=== PATIENT | female | born 1945 | race Caucasian/White ===

== ENCOUNTER 2016-09-24 19:22 | Observation (INO) ==
[2016-09-24 20:04] LABS: Basophils # 0.2 K/mcL (0.0-0.2); Basophils % 1.3 %; Eosinophils # 0.4 K/mcL (0.0-0.6); Eosinophils % 3.1 %; Hematocrit 42.6 % (35.3-44.9); Immature Granulocytes % 0.4 % (0-4); Lymphocytes # 5.6 K/mcL (0.6-4.6); Lymphocytes % 49.6 %; Mean Corpuscular HGB Conc 32.9 g/dL (31.6-35.5); Mean Corpuscular Volume 91.2 fL (83.0-100.0); Mean Platelet Volume 9.2 fL (9.4-12.4); Monocytes # 0.9 K/mcL (0.0-1.3); Monocytes % 8.2 %; Neutrophils # 4.2 K/mcL (1.6-8.9); Platelet Count 444 K/mcL (140-400); Red Blood Count 4.67 M/mcL (3.82-4.97); Red Cell Distribution Width 13.6 % (11.5-14.5); Segmented Neutrophils % 37.4 %
[2016-09-24 20:09] LABS: Prothrombin Time 10.4 Seconds (9.4-12.1)
[2016-09-24 20:11] LABS: Activated Partial Thrombo Time 29.9 Seconds (26.0-36.0)
[2016-09-24 20:16] LABS: BUN/Creatinine Ratio 13 (6-26); Blood Urea Nitrogen 12 mg/dL (7-20); Calcium 10.9 mg/dL (8.6-10.8); Carbon Dioxide 29 mEq/L (19-29); Chloride 101 mEq/L (98-109); Glucose 138 mg/dL (70-99); Osmolality,Calculated 296 (280-300); Potassium 3.6 mEq/L (3.5-4.5); Sodium 142 mEq/L (136-145); eGFR For African Americans > 60 (> 60); eGFR For Non-African Americans 57 (> 60)
[2016-09-24] MEDS ORDERED: *HR* Adenosine 6 MG/2 ML VIAL IVP ONE (20:32)
[2016-09-24] MEDS ORDERED: 0.9 % Sodium Chloride 500 ML ONE ×2 (20:36)
[2016-09-24 20:48] LABS: Thyroid Stimulating Hormone 1.648 mcIU/mL (0.350-4.840)
--- NOTE | 2016-09-24 20:51 | Emergency Department Note ---
Disposition Clinical Impression: Atrial fibrillation with rapid ventricular response Atrial fibrillation Qualifiers: Atrial fibrillation type: persistent Qualified Code(s): I48.1 - Persistent atrial fibrillation Disposition: Admitted As Inpatient Condition: Fair Referrals: NO,PCP [Non-Partnered Physician] - Forms: ED Satisfaction Letter Time of Disposition: 22:18 Arrhythmia/Palpitations HPI - General Chief Complaint: ED Arrhythmia/Palpitations Stated Complaint: "tachy and irregular heart beat" THORPE Time Seen by Provider: 09/24/16 20:20 Source: patient Mode of arrival: private vehicle Limitations: no limitations Nursing Notes Reviewed: Yes Vital Signs Reviewed: Yes - History of Present Illness Pt Subjective Complaint: rapid heart beat Onset (ago): Just BURN OUT TENDER LACE Duration: constant Severity: severe Context: occurred during rest Associated symptoms: Reports: denies other symptoms. Denies: chest pain, shortness of breath, near-syncope - Related Data Home Medications Medication Instructions Recorded Confirmed Alendronate Sodium [Fosamax] 70 mg PO QWEEK 09/24/16 09/24/16 Ca/D3/Mag#11/Zinc/Event Mgr/Tre/Bor 1 each PO DAILY 09/24/16 09/24/16 [Caltrate 600+D Plus Tablet] Cholecalciferol (Vitamin D3) 5,000 unit PO DAILY 09/24/16 09/24/16 [Vitamin D3] Cyanocobalamin (Vitamin B-12) 1,000 mcg PO DAILY 09/24/16 09/24/16 [Vitamin B12] Magnesium Oxide [Magnesium] 400 mg PO DAILY 09/24/16 09/24/16 Multivit-Min/Iron/Folic/Lutein 1 each PO DAILY 09/24/16 09/24/16 [Centrum Silver Women Tablet] Naproxen Sodium [Aleve] 220 mg PO Q12H PRN 09/24/16 09/24/16 Omeprazole [PriLOSEC] 20 mg PO DAILY 09/24/16 09/24/16 Phytonadione [Vitamin K] 100 mcg PO DAILY 09/24/16 09/24/16 Turmeric Root Extract [Turmeric] 500 mg PO DAILY 09/24/16 09/24/16 Ubidecarenone [Co Q-10] 200 mg PO DAILY 09/24/16 09/24/16 Vitamin A 100 mg PO DAILY 09/24/16 09/24/16 Allergies Allergy/AdvReac Type Severity Reaction Status Date / Time cefdinir Allergy "shaking Verified 09/24/16 19:45 all over" sulfamethoxazole Allergy "shaking Verified 09/24/16 19:45 [From Bactrim] all over" trimethoprim [From Bactrim] Allergy "shaking Verified 09/24/16 19:45 all over" All systems ED: reviewed and negative except as stated. Constitutional: Denies: fever, chills ENT ED: Denies: ear pain, throat pain, congestion Cardiovascular: Reports: palpitations. Denies: chest pain Respiratory: Denies: cough, dyspnea Gastrointestinal: Denies: abdominal pain, nausea, vomiting Musculoskeletal: Denies: back pain Integumentary: Denies: rash Neurological: Denies: headache Psychiatric: Denies: anxiety Past Medical History - Past Medical History Attestation: Yes The following information was validated with the patient. Source: patient, obtained from family, nursing notes reviewed Medical history: Reports: no medical history Surgical history: Reports: non-contributory Psychiatric history: Reports: no psych history - Social History Smoking Status: Never smoker Alcohol use: Reports: none Drug use: Reports: none Physical Exam - General Limitations: no limitations General appearance: alert, in no apparent distress - Head Head exam: atraumatic, normocephalic - Eye Eye exam: Present: normal appearance, PERRL, EOMI - ENT ENT exam: normal exam, normal oropharynx, mucous membranes moist, normal external ear exam - Neck Neck exam: Present: normal inspection, full ROM, trachea midline. Absent: meningismus, thyromegaly - Chest Chest inspection: Present: normal inspection, symmetric chest wall rise. Absent : tenderness - Respiratory Respiratory exam: Present: normal lung sounds bilaterally. Absent: respiratory distress, wheezes - Cardiovascular Cardiovascular exam: Present: tachycardia, irregular rhythm - Abdominal Exam Abdominal exam: Present: soft, Non-Tender, normal bowel sounds - Extremities Exam Extremities exam: Present: normal inspection, full ROM. Absent: pedal edema, calf tenderness - Neurological Exam Neurological exam: Present: alert, oriented X3 - Psychiatric Psychiatric exam: Present: normal affect, normal mood - Skin Skin exam: Present: warm, dry. Absent: rash Course Course Narrative: Patient presents with abrupt onset of rapid heartbeat. Initially her heart rate was 160 I could not tell if it was atrial fibrillation or SVT. We gave her 12 of Adenocard and her heart rate slowed down enough to indicate that it was atrial fibrillation. She is asymptomatic. I will start her on Cardizem. We will heparinize her. She will need to be admitted to the hospital. Labs are pending. - Reevaluation(s) Reevaluation #1: Heart raise on the 70-80 range. Still in atrial fibrillation. Artisan drip running at 5 mg an hour. Patient feels better. We will arrange to admit the patient. Lab workup looks good. Time: 22:17 - Consultations Consultation #1: Tian hospitalist - I discussed the case with the hospitalist. He is accepted the patient for admission. Time: 22:18 Vital Signs Temperature 97.9 F 09/24/16 19:38 Pulse Rate 157 09/24/16 19:38 Respiratory Rate 16 09/24/16 19:38 Blood Pressure 148/81 09/24/16 19:38 O2 Sat by Pulse Oximetry 97 09/24/16 19:38 Temperature 97.9 F 09/24/16 19:38 Pulse Rate 81 09/24/16 20:53 Respiratory Rate 16 09/24/16 20:53 Blood Pressure 115/59 09/24/16 20:53 O2 Sat by Pulse Oximetry 92 09/24/16 20:53 Oxygen Delivery Oxygen Delivery Nasal Cannula Arrhythmia/Palpitations - Lab Data Lab results reviewed: Yes I reviewed the patient's lab results. Result diagrams: 09/24/16 21:09 09/24/16 19:45 Lab Results 09/24/16 09/24/16 09/24/16 Range/Units 19:45 19:45 19:45 WBC 11.3 H (4.3-11.1) K/mcL RBC 4.67 (3.82-4.97) M/mcL Hgb 14.0 (11.5-15.4) g/dL Hct 42.6 (35.3-44.9) % MCV 91.2 (83.0-100.0) fL MCH 30.0 (28.0-33.3) pg MCHC 32.9 (31.6-35.5) g/dL RDW 13.6 (11.5-14.5) % Plt Count 444 H (140-400) K/mcL MPV 9.2 L (9.4-12.4) fL Immature Gran % 0.4 (0-4) % Seg Neutrophils % 37.4 % Lymphocytes % 49.6 % Monocytes % 8.2 % Eosinophils % 3.1 % Basophils % 1.3 % Neutrophils # 4.2 (1.6-8.9) K/mcL Lymphocytes # 5.6 H (0.6-4.6) K/mcL Monocytes # 0.9 (0.0-1.3) K/mcL Eosinophils # 0.4 (0.0-0.6) K/mcL Basophils # 0.2 (0.0-0.2) K/mcL PT 10.4 (9.4-12.1) Seconds INR 1.0 APTT 29.9 (26.0-36.0) Seconds Sodium 142 (136-145) mEq/L Potassium 3.6 (3.5-4.5) mEq/L Chloride 101 (98-109) mEq/L Carbon Dioxide 29 (19-29) mEq/L BUN 12 (7-20) mg/dL Creatinine 0.96 (0.57-1.11) mg/dL Est GFR ( Amer) > 60 (> 60) Est GFR (Non-Af Amer) 57 L (> 60) BUN/Creatinine Ratio 13 (6-26) Glucose 138 H (70-99) mg/dL Calculated Osmolality 296 (280-300) Calcium 10.9 H (8.6-10.8) mg/dL Troponin I (0-0.03) ng/mL TSH 1.648 (0.350-4.840) mcIU/mL 09/24/16 09/24/16 09/24/16 Range/Units 19:45 21:09 21:09 WBC 8.8 (4.3-11.1) K/mcL RBC 4.47 (3.82-4.97) M/mcL Hgb 13.3 (11.5-15.4) g/dL Hct 40.5 (35.3-44.9) % MCV 90.6 (83.0-100.0) fL MCH 29.8 (28.0-33.3) pg MCHC 32.8 (31.6-35.5) g/dL RDW 13.7 (11.5-14.5) % Plt Count 404 H (140-400) K/mcL MPV 9.3 L (9.4-12.4) fL Immature Gran % (0-4) % Seg Neutrophils % % Lymphocytes % % Monocytes % % Eosinophils % % Basophils % % Neutrophils # (1.6-8.9) K/mcL Lymphocytes # (0.6-4.6) K/mcL Monocytes # (0.0-1.3) K/mcL Eosinophils # (0.0-0.6) K/mcL Basophils # (0.0-0.2) K/mcL PT 10.5 (9.4-12.1) Seconds INR 1.0 APTT 29.5 (26.0-36.0) Seconds Sodium (136-145) mEq/L Potassium (3.5-4.5) mEq/L Chloride (98-109) mEq/L Carbon Dioxide (19-29) mEq/L BUN (7-20) mg/dL Creatinine (0.57-1.11) mg/dL Est GFR ( Amer) (> 60) Est GFR (Non-Af Amer) (> 60) BUN/Creatinine Ratio (6-26) Glucose (70-99) mg/dL Calculated Osmolality (280-300) Calcium (8.6-10.8) mg/dL Troponin I 0.00 (0-0.03) ng/mL TSH (0.350-4.840) mcIU/mL - Radiology Data Radiology results reviewed: Yes I reviewed the patient's radiology results. - EKG Data EKG attestation: Yes I reviewed and interpreted this EKG. EKG shows normal: axis, QRS complexes, ST-T waves Rate: tachycardia Rhythm: other (Unclear whether this is SVT or atrial fibrillation) Interpretation: other (Abnormal EKG. SVT versus atrial fibrillation. No obvious ischemic changes.) Critical Care Time Critical Care Time: Yes Total Critical Care Time: 30 Attestation: Patient arrives with A. fib with rapid ventricular response. I was called to bedside to evaluate the patient. Initiated Cardizem and Cardizem drip. This was done after an Adenocard trial. I did a history and physical and serial examinations and arranged the admission. Her diagnostic tests and interpreted them.
[2016-09-24] MEDS ORDERED: *HR* Heparin 5,000 UNIT/ML VIAL IVP ONE (20:52)
[2016-09-24] MEDS ORDERED: *HR* Heparin 5,000 UNIT/ML VIAL IVP PRN ×2 (20:52)
[2016-09-24] MEDS ORDERED: Heparin 25,000 UNIT/500 ML D5W 25,000 UNIT/500 ML MLS IVC SCH (21:00)
[2016-09-24 21:17] LABS: Hematocrit 40.5 % (35.3-44.9); Hemoglobin 13.3 g/dL (11.5-15.4); Mean Corpuscular HGB Conc 32.8 g/dL (31.6-35.5); Mean Corpuscular Hemoglobin 29.8 pg (28.0-33.3); Mean Corpuscular Volume 90.6 fL (83.0-100.0); Mean Platelet Volume 9.3 fL (9.4-12.4); Platelet Count 404 K/mcL (140-400); Red Blood Count 4.47 M/mcL (3.82-4.97); Red Cell Distribution Width 13.7 % (11.5-14.5)
[2016-09-24 21:22] LABS: Prothrombin Time 10.5 Seconds (9.4-12.1)
[2016-09-24 21:25] LABS: Activated Partial Thrombo Time 29.5 Seconds (26.0-36.0)
[2016-09-25] MEDS ORDERED: Naloxone 0.4 MG/ML INJ IVP PRN (00:29)
[2016-09-25] MEDS ORDERED: Acetaminophen 325 MG TABLET PO PRN (00:29)
[2016-09-25] MEDS ORDERED: Ondansetron 4 MG/2 ML VIAL IVP PRN (00:29)
[2016-09-25 01:27] LABS: Basophils # 0.1 K/mcL (0.0-0.2); Basophils % 1.3 %; Eosinophils # 0.4 K/mcL (0.0-0.6); Eosinophils % 4.1 %; Hematocrit 38.3 % (35.3-44.9); Hemoglobin 12.6 g/dL (11.5-15.4); Immature Granulocytes % 0.2 % (0-4); Lymphocytes # 4.6 K/mcL (0.6-4.6); Lymphocytes % 46.3 %; Mean Corpuscular HGB Conc 32.9 g/dL (31.6-35.5); Mean Corpuscular Hemoglobin 30.1 pg (28.0-33.3); Mean Corpuscular Volume 91.6 fL (83.0-100.0); Mean Platelet Volume 9.4 fL (9.4-12.4); Monocytes # 0.9 K/mcL (0.0-1.3); Monocytes % 8.9 %; Neutrophils # 3.9 K/mcL (1.6-8.9); Platelet Count 381 K/mcL (140-400); Red Blood Count 4.18 M/mcL (3.82-4.97); Red Cell Distribution Width 13.7 % (11.5-14.5); Segmented Neutrophils % 39.2 %
--- NOTE | 2016-09-25 01:32 | Internal Med History&Physical ---
<MargieAntonio gu Arabella - Last Filed: 09/25/16 01:26> Date of Encounter: 09/25/16 Time of Encounter: 01:27 Assessment and Plan (1) Atrial flutter Current visit: Yes Status: Acute Patient presents in what appears to be atrial flutter with rapid ventricular response. Unknown etiology at this time as thyroid studies are normal, no history of lung disease, no obvious infections present, electrolytes within normal limits, troponin negative. We will continue to workup possible etiology of her arrhythmia. Patient did not respond to adenosine in the emergency department was then placed on a Cardizem drip. Patient was also placed on a heparin drip. Repeat EKG on the floor showed conversion to sinus rhythm. Cardizem drip has been discontinued. We will consult cardiology. Qualifiers: Atrial flutter type: unspecified Qualified Code(s): I48.92 - Unspecified atrial flutter (2) Osteoporosis Current visit: Yes Status: Acute Continue Fosamax weekly. Qualifiers: Osteoporosis type: unspecified Presence of current pathological fracture: without current pathological fracture Qualified Code(s): M81.0 - Age-related osteoporosis without current pathological fracture (3) DVT prophylaxis Current visit: Yes Status: Acute Patient is currently on therapeutic heparin drip. Internal Medicine - H&P: HPI Chief complaint: Palpitations Admitted From: Emergency Dept Plans for Post Hospital Care: Home History of present illness: Ms. Roger is a 71 year old female with history of osteoporosis presents with palpitations. Patient states she was standing in line at the hardware store [employer] and she noticed a tight feeling in her throat. She states she felt her throat and at that time she could feel her pulse and it was extremely rapid. Patient states she has never had anything like this before. She denies chest pain, shortness of breath, diaphoresis, lower extremity swelling associated with this. She denies any history of abnormal or rapid heartbeat, any recent illness, lung disease, thyroid issues. Past Med Surg Social Fam HX - Past Medical History Medical history: no medical history Psychiatric history: no psych history - Past Surgical History Surgical History: non-contributory - Social History Smoking Status: Never smoker Smokeless Tobacco Status: No Alcohol use: none Drug use: none - Family History Father Sister Hx Family Cardiac Disorders: Yes (Both father and sister have pacemakers, pt does not know why) Internal Medicine - H&P: Meds Alendronate Sodium [Fosamax] 70 mg PO QWEEK 09/24/16 [History] Ca/D3/Mag#11/Zinc/Autocutter/Tre/Bor [Caltrate 600+D Plus Tablet] 1 each PO DAILY 06/11 [History] Cholecalciferol (Vitamin D3) [Vitamin D3] 5,000 unit PO DAILY 09/24/16 [History] Cyanocobalamin (Vitamin B-12) [Vitamin B12] 1,000 mcg PO DAILY 09/24/16 [History ] Magnesium Oxide [Magnesium] 400 mg PO DAILY 09/24/16 [History] Multivit-Min/Iron/Folic/Lutein [Centrum Silver Women Tablet] 1 each PO DAILY 06/11 [History] Naproxen Sodium [Aleve] 220 mg PO Q12H PRN 09/24/16 [History] Omeprazole [PriLOSEC] 20 mg PO DAILY 09/24/16 [History] Phytonadione [Vitamin K] 100 mcg PO DAILY 09/24/16 [History] Turmeric Root Extract [Turmeric] 500 mg PO DAILY 09/24/16 [History] Ubidecarenone [Co Q-10] 200 mg PO DAILY 09/24/16 [History] Vitamin A 100 mg PO DAILY 09/24/16 [History] Allergies cefdinir Allergy (Verified 09/24/16 19:45) "shaking all over" sulfamethoxazole [From Bactrim] Allergy (Verified 09/24/16 19:45) "shaking all over" trimethoprim [From Bactrim] Allergy (Verified 09/24/16 19:45) "shaking all over" All Systems PM: A 10-system review of systems was performed and is negative for pertinent findings except as documented above in the HPI. - Constitutional Constitutional: no anorexia, no fever(s) - EENT Eyes: no blurry vision, no change in vision Nose, mouth and throat: no sinus pain, no sinus pressure, no sore throat - Cardiovascular Cardiovascular ROS IM: palpitations, no chest pain, no dyspnea, no edema, no irregular heart rhythm, no lightheadedness, no syncope - Respiratory Respiratory: no cough, no dyspnea, no wheezing, no chest congestion, no excessive phlegm production, no change in phlegm color - Gastrointestinal Gastrointestinal: no abdominal pain, no diarrhea, no nausea, no vomiting - Genitourinary Genitourinary: no dysuria, no hematuria - Musculoskeletal Musculoskeletal ROS IM: no back pain, no numbness, no tingling - Integumentary Integumentary IM: no erythema, no new lesions, no rash - Neurological Neurological ROS: no confusion, no dizziness, no numbness, no weakness - Psychiatric Psychiatric: no anxiety, no depression - Endocrine Endocrine IM: no polydipsia, no polyuria - Hematologic/Lymphatic Hematologic/Lymphatic: no easy bleeding, no easy bruising - Allergic/Immunologic Allergic/Immunologic: no tongue swelling, no throat swelling - Constitutional Vitals: Temp Pulse Resp BP Pulse Ox 97.4 F L 61 14 114/56 97 09/25/16 00:25 09/25/16 00:25 09/25/16 00:25 09/25/16 00:25 09/25/16 00:25 General appearance: Present: A&O X 3, pleasant, no acute distress - Head Head exam: Present: atraumatic, normal inspection, normocephalic - Eye Eye exam: Present: EOMI, PERRL - ENT ENT exam: Present: mucous membranes moist - Neck Neck exam general surgery: Present: full ROM. Absent: tenderness - Respiratory Respiratory exam: Present: CTAB. Absent: rales, rhonchi, wheezes - Cardiovascular Cardiovascular exam: Present: irregular rhythm (rate regular). Absent: gallop, rubs, systolic murmur - GI/Abdominal GI/Abdominal exam: Present: normal bowel sounds. Absent: distended, soft, tenderness - Extremities Exam Extremities exam: Present: warm. Absent: pedal edema, tenderness - Neurological Exam Neurological exam: Present: alert, CN II-XII intact, oriented X3, no focal deficits - Skin Skin exam: Present: dry, intact, warm Internal Med - H&P Results - Labs CBC & Chem 7: 09/24/16 21:09 09/24/16 19:45 <Jhonatan Overton - Last Filed: 09/25/16 03:11> Date of Encounter: 09/25/16 Assessment and Plan (1) Atrial flutter with rapid ventricular response Current visit: Yes Status: Acute SVT versus Atrial flutter with RVR: Treated with diltiazem infusion. Now in sinus rhythm. Continue diltiazem. Will start oral betablockers prior to discharge. TSH is normal. Will obtain echocardiogram. Offered cardiology consultation here, but the patient prefers to see plant controls specialist outside. She need to take a copy of the EKGs to the plant controls specialist for f/u. CHADS2-Vasc score of 2 - recommend cardiology follow up. (2) Hypercalcemia Current visit: Yes Status: Acute Hypercalcemia: will check ionized calcium. Pt has h/o osteoporosis and is on caltrate. (3) Hyperglycemia Current visit: Yes Status: Acute Hyperglycemia: will check hemoglobin A1C. (4) Elevated troponin Current visit: Yes Status: Acute Elevated troponins: Likely due to RVR. trend troponin Internal Medicine - H&P: HPI History of present illness: Ms. Roger is a 71 year old female All Systems PM: A 10-system review of systems was performed and is negative for pertinent findings except as documented above in the HPI. - Constitutional Vitals: Temp Pulse Resp BP Pulse Ox 97.4 F L 61 14 114/56 97 09/25/16 00:25 09/25/16 00:25 09/25/16 00:25 09/25/16 00:25 09/25/16 00:25 Internal Med - H&P Results - Labs CBC & Chem 7: 09/25/16 01:17 09/25/16 01:17 Labs: Short CBC 09/25/16 Range/Units 01:17 WBC 9.8 (4.3-11.1) K/mcL Hgb 12.6 (11.5-15.4) g/dL Hct 38.3 (35.3-44.9) % Plt Count 381 (140-400) K/mcL Neutrophils # 3.9 (1.6-8.9) K/mcL BMP 09/25/16 01:17 Sodium 141 Potassium 3.9 Chloride 104 Carbon Dioxide 30 H BUN 12 Creatinine 0.82 Glucose 111 H Calcium 10.1 Cardiac Enzymes 09/25/16 Range/Units 01:17 Troponin I 0.04 H* (0-0.03) ng/mL - Attending Attestation I performed history and physical examination of the patient and discussed management with the Resident. I reviewed the Residents note and agree with documented findings and plan of care. 71 Y/F presented with palpitations. In the ER, the ER physician was concerned about the SVT versus atrial fibrillation with RVR. Adenosine was given and the ER physician thought that patient has atrial fibrillation. She was given diltiazem infusion and heparin infusion, with improvement of heart rate. She is admitted to the hospitalist service for further management. O/E: Not in acute distress. Cardiac regular rate and rhythm. Lungs clear to auscultation. EKG personally reviewed by me shows: SVT / Atrial flutter with RVR HR of 155. Repeat EKG shows sinus rhythm. TSH: 1.64. CXR shows no acute cardiopulmonary but findings. A/P: SVT versus Atrial flutter with RVR: Treated with diltiazem infusion. Now in sinus rhythm. Continue diltiazem. Will start oral betablockers prior to discharge. TSH is normal. Will obtain echocardiogram. Offered cardiology consultation here, but the patient prefers to see plant controls specialist outside. She need to take a copy of the EKGs to the plant controls specialist for f/u. CHADS2-Vasc score of 2 - recommend cardiology follow up. Hyperglycemia: will check hemoglobin A1C. Hypercalcemia: will check ionized calcium. Pt has h/o osteoporosis and is on caltrate. Elevated troponins: Likely due to RVR. trend troponin
[2016-09-25 01:33] LABS: Prothrombin Time 11.1 Seconds (9.4-12.1)
[2016-09-25 01:41] LABS: BUN/Creatinine Ratio 15 (6-26); Blood Urea Nitrogen 12 mg/dL (7-20); Calcium 10.1 mg/dL (8.6-10.8); Carbon Dioxide 30 mEq/L (19-29); Chloride 104 mEq/L (98-109); Chol/HDL Ratio 3.5 (0-4.9); Cholesterol 190 mg/dL (< 200); Glucose 111 mg/dL (70-99); HDL Cholesterol 54 mg/dL (40-59); LDL Cholesterol,Calculated 114 mg/dL (0-99); Magnesium 2.2 mg/dL (1.6-2.6); Osmolality,Calculated 292 (280-300); Potassium 3.9 mEq/L (3.5-4.5); Sodium 141 mEq/L (136-145); Triglycerides 108 mg/dL (< 150); eGFR For African Americans > 60 (> 60); eGFR For Non-African Americans > 60 (> 60)
[2016-09-25 01:49] LABS: Activated Partial Thrombo Time 146.7 Seconds (26.0-36.0)
[2016-09-25 01:59] LABS: Heparin anti-factor XA UFH 1.03 IU/mL (0.30-0.70)
[2016-09-25 03:34] LABS: Hemoglobin A1C 5.3 %
[2016-09-25] MEDS ORDERED: Cyanocobalamin (B-12) 1,000 MCG TABLET PO SCH (09:00)
[2016-09-25] MEDS ORDERED: Magnesium Oxide 400 MG TABLET PO SCH (09:00)
--- NOTE | 2016-09-25 11:23 | Cardiology Consult Note ---
Date of Encounter: 09/25/16 Time of Encounter: 11:20 Assessment and Plan (1) Atrial flutter with rapid ventricular response Current Visit: Yes Status: Acute New onset, 2:1 A-Flutter on EKG on presentation to ED. Pt quickly converted to SR on Cardizem gtt, since discontinued. Pt has since maintained SR. 24 hour tele AVG HR 64. Will add low dose PO Cardizem CD 120mg daily. CHADSVASC score of 2 (Age, Female). Recommend anticoagulation. Discussed Coumadin vs. NOACs. Pt's is on Coumadin [facility] and very happy with their management. Pt prefers Coumadin. Will initiate and send referral to [facility]. Echo pending. Recommend follow-up with EP, Dr. Gonzalo Moss as outpt to discuss A-Flutter ablation. If no significant findings on echo, anticipate sign off from cardiac standpoint. (2) Elevated troponin Current Visit: Yes Status: Acute Two negative, one Borderline--0.00, 0.04, 0.03 in setting of A-Flutter with RVR. Nondiagnostic for ACS. Pt denies any chest pain or dyspnea. Echo pending. Discussion w patient/family: The assessment and plan as outlined above was discussed with the patient and/or family members who expressed understanding and agreement. All questions were answered. Thank you for involving us in the care of your patient. Please call with any questions. I will discuss all the above with Dr. Mead and make changes as necessary. History of Present Illness Consult date: 09/25/16 Requesting physician: Tamera Crespo Consult reason: A-Flutter RVR Chief complaint: Palpitations History of present illness: Ms. Roger is a 71 year old female with PMH of osteoporosis that presented with palpitations. Patient states she was standing in line at the hardware store yesterday and she noticed a tight feeling in her throat. She states she felt her throat and at that time she could feel her pulse and it was extremely rapid. Patient states she has never had anything like this before. She denies chest pain, shortness of breath, diaphoresis, lower extremity swelling associated with this. She denies any history of abnormal or rapid heartbeat, any recent illness, lung disease, thyroid issues. She reports her father and 2 sisters had pacemakers. All labs have been within normal range. Pt was started on Cardizem gtt and converted back to SR, which she is maintaining. Cardiology consulted for further recommendations. Past Med Surg Social Fam HX - Past Medical History Medical history: osteoporosis Psychiatric history: no psych history - Past Surgical History Surgical History: non-contributory - Social History Smoking Status: Never smoker Smokeless Tobacco Status: No Alcohol use: none Drug use: none - Family History Father Sister Hx Family Cardiac Disorders: Yes (Both father and sister have pacemakers, pt does not know why) Medications and Allergies Alendronate Sodium [Fosamax] 70 mg PO QWEEK 09/24/16 [History] Ca/D3/Mag#11/Zinc/Insurance Instructor/Tre/Bor [Caltrate 600+D Plus Tablet] 1 each PO DAILY 06/11 [History] Cholecalciferol (Vitamin D3) [Vitamin D3] 5,000 unit PO DAILY 09/24/16 [History] Cyanocobalamin (Vitamin B-12) [Vitamin B12] 1,000 mcg PO DAILY 09/24/16 [History ] Magnesium Oxide [Magnesium] 400 mg PO DAILY 09/24/16 [History] Multivit-Min/Iron/Folic/Lutein [Centrum Silver Women Tablet] 1 each PO DAILY 06/11 [History] Naproxen Sodium [Aleve] 220 mg PO Q12H PRN 09/24/16 [History] Omeprazole [PriLOSEC] 20 mg PO DAILY 09/24/16 [History] Phytonadione [Vitamin K] 100 mcg PO DAILY 09/24/16 [History] Turmeric Root Extract [Turmeric] 500 mg PO DAILY 09/24/16 [History] Ubidecarenone [Co Q-10] 200 mg PO DAILY 09/24/16 [History] Vitamin A 100 mg PO DAILY 09/24/16 [History] Allergies cefdinir Allergy (Verified 09/24/16 19:45) "shaking all over" sulfamethoxazole [From Bactrim] Allergy (Verified 09/24/16 19:45) "shaking all over" trimethoprim [From Bactrim] Allergy (Verified 09/24/16 19:45) "shaking all over" All Systems Review: A 10-system review of systems was performed and is negative for pertinent findings except as documented above in the HPI. - Cardiovascular Cardiovascular: as per HPI, palpitations, rapid heart rate Physical Examination Vital Signs, Last 4 Hours Temp Pulse Resp BP Pulse Ox 09/25/16 07:34 97.9 F 67 16 124/62 96 Vital Signs Temp Pulse Resp BP Pulse Ox 09/25/16 07:34 97.9 F 67 16 124/62 96 09/25/16 03:13 97.5 F L 61 14 120/57 100 09/25/16 00:25 97.4 F L 61 14 114/56 97 09/25/16 00:15 97 09/24/16 23:32 14 109/52 09/24/16 20:53 81 16 115/59 92 09/24/16 20:44 161 18 146/91 92 09/24/16 19:56 89 09/24/16 19:53 153 18 146/91 92 09/24/16 19:38 97.9 F 157 16 148/81 97 Intake and Output 09/24/16 09/25/16 09/25/16 23:59 07:59 15:59 Intake Total 200 / 200 Balance 200 / 200 Intake: IV Fluids 100 / 100 Heparin 25,000 UNIT/500 100 / 100 ML D5W 25,000 unit In 500 ml @ 14 UNIT/KG/HR 18. 721 mls/hr IVC .Q24H [facility] Rx#:[id number] Oral 100 / 100 Other: # Voids 1 Weight 66.86 kg 69.088 kg Patient Weight 09/25/16 23:59 Weight 69.088 kg General: Conversant HEENT: Atraumatic, Normocephaly, Mucus Membranes Moist Neck: No JVD, Normal carotid pulses Cardiac: Reg Rate and Rhythm, Normal S1 and S2, No Murmur Lungs: Normal Breath Sounds, No Wheeze, Rales, Rhonchi Neuro: Alert and responsive, No focal deficits noted Abdomen: Soft, Non-Tender Skin: No rashes noted on visualized skin Musculoskeletal: No Chest Wall Tenderness Extremities: No Clubbing, No Cyanosis, No Edema, Normal Pulses Results 09/25/16 01:17 09/25/16 01:17 Lab Results 09/25/16 09/25/16 09/25/16 01:17 01:17 01:17 WBC 9.8 Hgb 12.6 Hct 38.3 Plt Count 381 INR 1.0 APTT 146.7 H* D Sodium Potassium Chloride Carbon Dioxide BUN Creatinine Glucose Calcium Magnesium Troponin I 0.04 H* 09/25/16 09/25/16 01:17 07:26 WBC Hgb Hct Plt Count INR APTT Sodium 141 Potassium 3.9 Chloride 104 Carbon Dioxide 30 H BUN 12 Creatinine 0.82 Glucose 111 H Calcium 10.1 Magnesium 2.2 Troponin I 0.03 Short CBC 09/25/16 09/24/16 09/24/16 Range/Units 01:17 21:09 19:45 WBC 9.8 8.8 11.3 H (4.3-11.1) K/mcL Hgb 12.6 13.3 14.0 (11.5-15.4) g/dL Hct 38.3 40.5 42.6 (35.3-44.9) % Plt Count 381 404 H 444 H (140-400) K/mcL Neutrophils # 3.9 4.2 (1.6-8.9) K/mcL BMP 09/25/16 09/24/16 Range/Units 01:17 19:45 Sodium 141 142 (136-145) mEq/L Potassium 3.9 3.6 (3.5-4.5) mEq/L Chloride 104 101 (98-109) mEq/L Carbon Dioxide 30 H 29 (19-29) mEq/L BUN 12 12 (7-20) mg/dL Creatinine 0.82 0.96 (0.57-1.11) mg/dL Glucose 111 H 138 H (70-99) mg/dL Calcium 10.1 10.9 H (8.6-10.8) mg/dL Cardiac Enzymes 09/25/16 09/25/16 09/24/16 Range/Units 07:26 01:17 19:45 Troponin I 0.03 0.04 H* 0.00 (0-0.03) ng/mL Impressions Chest X-Ray 09/24/16 19:54 IMPRESSION: No acute cardiopulmonary findings. D/ / Bhupinder Johns MD / Bhupinder Johns MD Interpreting Provider: Bhupinder Johns MD Active Medications Acetaminophen (Tylenol) 650 mg PO Q6HR PRN PRN Reason: Mild Pain (1-3) Stop: 03/27/17 00:30 Cyanocobalamin (Vitamin B12) 1,000 mcg PO DAILY [facility] Stop: 03/27/17 09:01 Last Admin: 09/25/16 10:18 Dose: 1,000 mcg Diltiazem HCl (Cardizem Cd) 120 mg PO DAILY [facility] Stop: 03/27/17 11:31 Magnesium Oxide (Mag-Ox) 400 mg PO DAILY SHIVA PRN Reason: Protocol Stop: 03/27/17 09:01 Last Admin: 09/25/16 10:18 Dose: 400 mg Naloxone HCl (Narcan) 0.4 mg IVP Q2MIN PRN PRN Reason: Opioid Reversal Stop: 03/27/17 00:30 Omeprazole (Prilosec) 20 mg PO 0630 [facility] PRN Reason: Protocol Stop: 03/27/17 06:31 Last Admin: 09/25/16 06:10 Dose: 20 mg Ondansetron HCl (Zofran) 4 mg IVP Q8HR PRN PRN Reason: Nausea And Vomiting Stop: 03/27/17 00:30 - Imaging and Cardiology Echo: pending - EKG Interpretation EKG results cardiology: personally reviewed (A-Flutter RVR rate 150s.), other ( 24 hour tele AVG HR 64, SR.) Consult Discharge Plan - Plan Referrals: Cipriano Cuellar MD [Primary Care Provider] -
[2016-09-25] MEDS ORDERED: Diltiazem CD (24hr) 120 MG CAPSULE PO SCH (11:30)
[2016-09-25 12:00] VITALS: BP 108/59
--- NOTE | 2016-09-25 13:25 | Discharge Summary ---
Date of Encounter: 09/25/16 Time of Encounter: 13:00 - Discharge Diagnosis (1) Atrial flutter with rapid ventricular response Priority: Primary Status: Resolved Comments: Seen by cardiology and started on Cardizem and Coumadin. Follow-up outpatient (2) DVT prophylaxis Priority: Primary Status: Acute Comments: Observation patient; started on Coumadin (3) Hypercalcemia Priority: Primary Status: Resolved (4) Hyperglycemia Priority: Primary Status: Ruled-out Comments: Diabetes ruled out with an A1c of 5.3%. Likely 2/2 stress (5) Elevated troponin Priority: Primary Status: Resolved (6) Osteoporosis Priority: Secondary Status: Chronic Qualifiers: Osteoporosis type: unspecified Presence of current pathological fracture: without current pathological fracture Qualified Code(s): M81.0 - Age-related osteoporosis without current pathological fracture - Discharge Medications Prescriptions: Diltiazem CD (24hr) [Cardizem CD] 120 mg PO DAILY #30 cap.er.24h Warfarin [Coumadin] 3 mg PO DAILY@1800 #30 tablet Home Medications: Alendronate Sodium [Fosamax] 70 mg PO QWEEK 09/24/16 [History] Ca/D3/Mag#11/Zinc/Air Brake Man/Tre/Bor [Caltrate 600+D Plus Tablet] 1 each PO DAILY 06/11 [History] Cholecalciferol (Vitamin D3) [Vitamin D3] 5,000 unit PO DAILY 09/24/16 [History] Cyanocobalamin (Vitamin B-12) [Vitamin B12] 1,000 mcg PO DAILY 09/24/16 [History ] Magnesium Oxide [Magnesium] 400 mg PO DAILY 09/24/16 [History] Multivit-Min/Iron/Folic/Lutein [Centrum Silver Women Tablet] 1 each PO DAILY 06/11 [History] Naproxen Sodium [Aleve] 220 mg PO Q12H PRN 09/24/16 [History] Omeprazole [PriLOSEC] 20 mg PO DAILY 09/24/16 [History] Phytonadione [Vitamin K] 100 mcg PO DAILY 09/24/16 [History] Turmeric Root Extract [Turmeric] 500 mg PO DAILY 09/24/16 [History] Ubidecarenone [Co Q-10] 200 mg PO DAILY 09/24/16 [History] Vitamin A 100 mg PO DAILY 09/24/16 [History] Diltiazem CD (24hr) [Cardizem CD] 120 mg PO DAILY #30 cap.er.24h 09/25/16 [Rx] Warfarin [Coumadin] 3 mg PO DAILY@1800 #30 tablet 09/25/16 [Rx] Allergies/Adverse Reactions: Allergies cefdinir Allergy (Verified 09/24/16 19:45) "shaking all over" sulfamethoxazole [From Bactrim] Allergy (Verified 09/24/16 19:45) "shaking all over" trimethoprim [From Bactrim] Allergy (Verified 09/24/16 19:45) "shaking all over" Procedures/tests Complete & Pending: Procedures Performed prior 72 hours Category Date Time Status EKG [ECG 12 lead ECG] [ECG] Stat Y 09/25/16 00:52 Ordered EV echocardiogram Routine Y 09/25/16 00:33 Completed Date of admission: 09/24/16 22:57 Primary care physician: Cipriano Cuellar MD Consults: 09/25/16 09:23 Consult to Cardiology [CONS] Routine Comment: Consulting Provider: Cardiology Rossana Reason for Consult: new onset aflutter rvr. converted to nsr now Time Notified: 09:24 Call Completed: Yes Discharging clinician: Tamera Crespo Anticipated date of discharge: 09/25/16 - Patient Status Disposition: Home, Self-Care Condition: Good Functional capacity at discharge: independent ambulation Overall status at discharge: patient is back to baseline - Discharge Instructions Follow Up With: Cipriano Cuellar MD [Primary Care Provider] - Clinic, Coumadin [Other] Gonzalo Moss MD [Partnered Physician] - Additional Instructions: Follow-up with primary care provider within one to 2 weeks. Follow-up with Coumadin clinic on Tuesday. Follow-up with Dr. Moss as scheduled - Diet and Activity Activity: increase activity as tolerated Diet: regular diet Hospital course: Ms. Roger is a 71 year old female with no significant past medical history. She presented to the emergency department chief complaint of palpitations. She was standing in the store when she started noticing a tight feeling in her throat and then she can feel that her pulse was extremely rapid. Patient denies prior bouts of palpitations. She denied chest pain, shortness of breath , diaphoresis, or lower extremity edema. In the emergency department, patient was noted to be atrial flutter with RVR. Patient was initially started on Cardizem drip and heparin drip both of which were discontinued when she converted to normal sinus rhythm. She was admitted to the hospitalist service for further evaluation and management. Chest x-ray negative. Cardiology was brought on board who proceeded with starting the patient on by mouth Cardizem and, with a Chads vasc score of 2, the patient was started on Coumadin. Patient had mild troponin elevation of 0.04 that resolved prior to discharge, likely demand ischemia. Echocardiogram unremarkable with ejection fraction of 70%. Patient was referred to the Coumadin clinic and will follow up outpatient with Dr. Gonzalo Moss for possible ablation. She was discharged home in stable condition with close outpatient follow-up recommended. She has an appointment with the Coumadin clinic on Tuesday (she was discharged on Tuesday). ITS Impressions Chest X-Ray 09/24/16 19:54 IMPRESSION: No acute cardiopulmonary findings. D/ / Bhupinder Johns MD / Bhupinder Johns MD Interpreting Provider: Bhupinder Johns MD Echocardiogram impressions: LVEF 70%. Normal LV chamber size, wall thickness and function. Pseudo-normal left ventricular diastolic function. Normal right ventricular structure and function. Mild tricuspid regurgitation. Mild pulmonary hypertension. - Time Spent with Patient Total time spent providing and/or coordinating discharge services: - Constitutional Vitals: Temp Pulse Resp BP Pulse Ox 97.3 F L 64 16 108/59 91 09/25/16 11:59 09/25/16 11:59 09/25/16 11:59 09/25/16 11:59 09/25/16 11:59 General appearance: Present: A&O X 3, pleasant, no acute distress, answers questions appropriately - Head Head exam: Present: atraumatic, normocephalic - Eye Eye exam: Present: PERRL, conjuntiva pink, sclera anicteric Pupils: Present: PERRL - Neck Neck exam general surgery: Present: supple, trachea midline. Absent: lymphadenopathy - Respiratory Respiratory exam: Present: CTAB. Absent: accessory muscle use, rales, respiratory distress, rhonchi, wheezes - Cardiovascular Cardiovascular exam: Present: RRR, +S1, +S2. Absent: diastolic murmur, gallop, rubs, systolic murmur - GI/Abdominal GI/Abdominal exam: Present: normal bowel sounds, soft, no peritoneal signs. Absent: distended, tenderness - Extremities Exam Extremities exam: Present: warm, radial pulses palpable and symetrical. Absent : calf tenderness, cyanotic, pedal edema - Neurological Exam Neurological exam: Present: alert, CN II-XII intact, normal gait, oriented X3, no focal deficits, strengths equal and symetr throughout. Absent: pronater drift, facial droop, speech deficit - Skin Skin exam: Present: dry, intact, normal color, warm
[2016-09-25] MEDS ORDERED: *HR* Warfarin 3 MG TABLET PO SCH (18:00)
--- NOTE | 2016-09-27 07:58 | Electrocardiograph Report ---
[place] [id number] Test Date: 2016-09-24 Pat Name: Didi Roger Department: 103 Room: 3B32 Gender: F Project Development Engineer: LAKEISHA : 1945 Requested By: Antonio Amezcua Order Number: [id number] Reading MD: Nicholas Mead DO Measurements Intervals [place] Rate: 155 P: 259 IA: 120 QRS: 16 QRSD: 139 T: 38 QT: 249 QTc: 336 Interpretive Statements Probable atrial flutter with rapid ventricular response Electronically Signed On 09-27-2016 7:57:28 EDT by Nicholas Mead DO
--- NOTE | 2016-09-27 08:04 | Electrocardiograph Report ---
[place] [address] Test Date: 2016-09-25 Pat Name: Didi Roger Department: 113 Room: 3B32 Gender: F Global Recruiter: KAJAL : 1945 Requested By: Antonio Washington Order Number: [id number] Reading MD: Nicholas Mead DO Measurements Intervals [place] Rate: 56 P: 69 DE: 141 QRS: 45 QRSD: 74 T: 55 QT: 399 QTc: 390 Interpretive Statements SINUS BRADYCARDIA Electronically Signed On 09-27-2016 8:02:56 EDT by Nicholas Mead DO
== END 2016-09-25 14:30 | disposition home or self-care (01) ==
LOC: EMEROO 19:22 → 3BNU 19:22
PROVIDERS: ADMIT Internal Medicine; ATTEND Nurse Practitioner Family